=== PATIENT | male | born 1995 | race Caucasian/White ===

== ENCOUNTER 2022-11-21 14:15 | Emergency (ER) | payer SELFPAY ==
--- NOTE | 2022-11-21 14:29 | ED_ITS ---
HPI - General Adult General Chief complaint: Syncope <PHILLIP Diaz - Last Filed: 11/21/22 14:34> Stated complaint: Syncope <PHILLIP Diaz - Last Filed: 11/21/22 14:34> Time Seen by Provider: 11/21/22 15:52 <PHILLIP Diaz - Last Filed: 11/21/22 14:34> Source: patient <Dagmar Seaman MD - Last Filed: 11/21/22 16:29> Mode of arrival: ambulatory <Dagmar Seaman MD - Last Filed: 11/21/22 16:29> History of Present Illness HPI narrative: 26-year-old male without significant past medical history states that he had a 1st episode of passing out? 2 years ago, it has stopped for while and then states that since September he has had several episodes that happen at different times of the day, different activities, he is not able to figure out a pattern. But states that the prodrome is always that he feels pressure at the right parietal area with some noise and he knows it is going to happen. Last episode was yesterday, patient was urinating felt the symptoms quickly left the bathroom and then was found on the floor. A couple of the episodes have been witnessed and is reported as ?seizure like activity?. He denies any recent fevers, chills, GI or symptoms and denies any new cough, sore throat, ear pain and denies any hearing changes or visual changes. <Dagmar Seaman MD - Last Filed: 11/21/22 16:29> Related Data Allergies/adverse reactions: Allergies Allergy/AdvReac Type Severity Reaction Status Date / Time No Known Allergies Allergy Verified 11/21/22 14:30 <PHILLIP Diaz - Last Filed: 11/21/22 14:34> Review of Systems Review of Systems: Pertinent positives and negatives as stated in HPI <Dagmar Seaman MD - Last Filed: 11/21/22 16:29> PMFSH Past Medical History Source: nursing notes reviewed <Dagmar Seaman MD - Last Filed: 11/21/22 16:29> Social History Social History: Social History Alcohol intake: unknown Smoked in Last 30 Days: No Use of substances other than those prescribed or required for medical reasons: Unknown Advance Directives: No Advance Directives Information Provided: No <PHILLIP Diaz Last Filed: 11/21/22 14:34> Physical Exam ED Vital Signs: Vital Signs - 24 hr 11/21/22 14:30 11/21/22 15:45 Temperature 98.1 F Pulse Rate 53 Respiratory Rate 18 16 Blood Pressure 127/69 Pulse Oximetry 98 Oxygen Delivery Method Room Air BMI result Body Mass Index 33.8 <PHILLIP Diaz Last Filed: 11/21/22 14:34> Vital Signs - 24 hr 11/21/22 14:30 11/21/22 15:45 Temperature 98.1 F Pulse Rate 53 Respiratory Rate 18 16 Blood Pressure 127/69 Pulse Oximetry 98 Oxygen Delivery Method Room Air BMI result Body Mass Index 33.8 VITAL SIGNS: Reviewed. GENERAL: Well developed, well nourished, in no acute distress. HEAD: Normocephalic/atraumatic EYES: PERRLA, EOMI EARS: Ext canals without abnormality NOSE: Nares patent bilateral OROPHARYNX: no oral lesions noted, posterior pharynx clear NECK: Supple, no adenopathy LUNGS: Normal breath sounds. No adventitious sounds or accessory muscle use. SpO2<98> CARDIOVASCULAR: Regular rate and rhythm without noted murmurs ABDOMEN: Soft, non-tender, non-distended with bowel sounds. MUSCULOSKELETAL: No tenderness, deformities, or effusions noted on gross inspection. EXTREMITIES: No cyanosis, clubbing or edema. SKIN: Inspection of the skin reveals no rashes NEUROLOGIC: Alert and oriented x 4. Strength and sensation to light touch were grossly intact x 4. <Dagmar Seaman MD - Last Filed: 11/21/22 16:29> Course Course Course Narrative: RME performed by Romina Mccracken PA-C. Patient is a 26 year old female presenting to the emergency department with episodes of intermittent syncope. Patient states that he has had a few episodes of passing out. Labs and EKG ordered. Patient placed back in the waiting room pending room availability and results. <PHILLIP Diaz - Last Filed: 11/21/22 14:34> Medical Decision Making Differential Diagnosis 26-year-old male with history and clinical presentation after review of lab work mildly suggestive of partial seizures although there are no injuries noted to the face/ears/elbows or hands and patient denies any midline vertebral tenderness or hip discomfort. Will obtain orthostatics. There is no evidence infection, anemia, electrolyte abnormalities to otherwise explain patient's condition. 1627: I just informed by nursing that patient eloped. <Dagmar Seaman MD - Last Filed: 11/21/22 16:29> Lab Data Please see the discussion above <Dagmar Seaman MD - Last Filed: 11/21/22 16:29> Result Diagrams: 11/21/22 15:05 11/21/22 15:05 <PHILLIP Diaz - Last Filed: 11/21/22 14:34> Labs: Lab Results 11/21/22 11/21/22 Range/Units 15:05 15:05 WBC 10.9 H (4.8-10.8) X10*3/uL RBC 5.25 (4.60-5.80) X10*6/uL Hgb 15.9 (14.0-18.0) g/dl Hct 46.1 (42.0-52.0) % MCV 87.8 (80.0-98.0) fL MCH 30.3 (27.0-33.0) pg MCHC 34.5 (31.0-36.0) g/dl RDW 12.1 (11.0-16.0) % Plt Count 269 (160-400) X10*3/uL MPV 10.9 (9.4-12.4) fL Immature Gran % (Auto) 0.2 (0.0-0.4) % Neut % (Auto) 63.5 (45-73) % Lymph % (Auto) 28.9 (20-40) % [place] % (Auto) 5.9 (2-11) % Eos % (Auto) 1.2 (0-4) % Baso % (Auto) 0.3 (0-2) % Lymph # (Auto) 3.1 (1.2-4.9) X10*3/uL [place] # (Auto) 0.6 (0.1-1.2) X10*3/uL Eos # (Auto) 0.1 (0.0-0.4) X10*3/uL Baso # (Auto) 0.0 (0.0-0.2) X10*3/uL Abs Immat Gran (auto) 0.02 (0.00-0.03) X10*3/uL Absolute Neuts (auto) 6.9 (2.0-8.3) x10*3/uL Absolute Nucleated RBC 0.000 (0.0-0.012) X10*3/uL Nucleated RBC % (auto) 0.0 (0.0-0.2) /100WBC Sodium 140 (135-145) mmol/L Potassium 3.9 (3.3-5.1) mmol/L Chloride 104 (96-108) mmol/L Carbon Dioxide 25 (22-29) mmol/L Anion Gap 15 (12-20) BUN 17 H (9-16) mg/dL Creatinine 1.12 (0.5-1.4) mg/dL Estim Creat Clear Calc 112.8 Estimated GFR > 60 Random Glucose 97 (60-115) mg/dL Calcium 10.1 (8.4-10.2) mg/dL Magnesium 1.9 (1.6-2.6) mg/dL Total Bilirubin 0.4 (0.0-1.0) mg/dL AST 24 (5-37) U/L ALT 28 (0-40) U/L Alkaline Phosphatase 99 (39-117) U/L Total Protein 7.7 (6.5-8.0) g/dL Albumin 4.5 (3.5-5.0) g/dL <PHILLIP Diaz - Last Filed: 11/21/22 14:34> Lab Results 11/21/22 11/21/22 Range/Units 15:05 15:05 WBC 10.9 H (4.8-10.8) X10*3/uL RBC 5.25 (4.60-5.80) X10*6/uL Hgb 15.9 (14.0-18.0) g/dl Hct 46.1 (42.0-52.0) % MCV 87.8 (80.0-98.0) fL MCH 30.3 (27.0-33.0) pg MCHC 34.5 (31.0-36.0) g/dl RDW 12.1 (11.0-16.0) % Plt Count 269 (160-400) X10*3/uL MPV 10.9 (9.4-12.4) fL Immature Gran % (Auto) 0.2 (0.0-0.4) % Neut % (Auto) 63.5 (45-73) % Lymph % (Auto) 28.9 (20-40) % [place] % (Auto) 5.9 (2-11) % Eos % (Auto) 1.2 (0-4) % Baso % (Auto) 0.3 (0-2) % Lymph # (Auto) 3.1 (1.2-4.9) X10*3/uL [place] # (Auto) 0.6 (0.1-1.2) X10*3/uL Eos # (Auto) 0.1 (0.0-0.4) X10*3/uL Baso # (Auto) 0.0 (0.0-0.2) X10*3/uL Abs Immat Gran (auto) 0.02 (0.00-0.03) X10*3/uL Absolute Neuts (auto) 6.9 (2.0-8.3) x10*3/uL Absolute Nucleated RBC 0.000 (0.0-0.012) X10*3/uL Nucleated RBC % (auto) 0.0 (0.0-0.2) /100WBC Sodium 140 (135-145) mmol/L Potassium 3.9 (3.3-5.1) mmol/L Chloride 104 (96-108) mmol/L Carbon Dioxide 25 (22-29) mmol/L Anion Gap 15 (12-20) BUN 17 H (9-16) mg/dL Creatinine 1.12 (0.5-1.4) mg/dL Estim Creat Clear Calc 112.8 Estimated GFR > 60 Random Glucose 97 (60-115) mg/dL Calcium 10.1 (8.4-10.2) mg/dL Magnesium 1.9 (1.6-2.6) mg/dL Total Bilirubin 0.4 (0.0-1.0) mg/dL AST 24 (5-37) U/L ALT 28 (0-40) U/L Alkaline Phosphatase 99 (39-117) U/L Total Protein 7.7 (6.5-8.0) g/dL Albumin 4.5 (3.5-5.0) g/dL <Dagmar Seaman MD - Last Filed: 11/21/22 16:29> Independent Interpretation I performed an independent interpretation of an: EKG <Dagmar Seaman MD - Last Filed: 11/21/22 16:29> Interpretation: Sinus bradycardia, HR -53, no STEMI, MT/QRS/QTC are within normal limits. Findings in lead 1 are consistent with LVH <Dagmar Seaman MD - Last Filed: 11/21/22 16:29> Discharge Plan Discharge Clinical Impression: Seizure <PHILLIP Diaz - Last Filed: 11/21/22 14:34> Patient Disposition: Elopement <PHILLIP Diaz - Last Filed: 11/21/22 14:34>
[2022-11-21 14:30] VITALS: BP 127/69; PULSE 53; RESP 18; TEMP 36.7; O2SAT 98; BMI 33.8
--- NOTE | 2022-11-21 14:34 | ECG_ITS ---
Test Reason : SYNCOPE Blood Pressure : / mmHG Vent. Rate : 053 BPM Atrial Rate : 053 BPM P-R Int : 150 ms QRS Dur : 098 ms QT Int : 436 ms P-R-T Axes : 033 -07 -13 degrees QTc Int : 409 ms Sinus bradycardia Minimal voltage criteria for LVH, may be normal variant ( R in aVL ) Borderline ECG No previous ECGs available Referred By: Romina Mccracken Electronically Signed By:IVAN CHOW
[2022-11-21 15:16] LABS: MANUAL DIFF FLAG NO
[2022-11-21 15:18] LABS: Basophils Percent Auto 0.3 % (0-2); Eosinophils Absolute Auto 0.1 X10*3/uL (0.0-0.4); Eosinophils Percent Auto 1.2 % (0-4); Hematocrit 46.1 % (42.0-52.0); Hemoglobin 15.9 g/dl (14.0-18.0); Imm Gran Abs Auto 0.02 X10*3/uL (0.00-0.03); Imm Gran Pct Auto 0.2 % (0.0-0.4); Lymphocytes Absolute Auto 3.1 X10*3/uL (1.2-4.9); Lymphocytes Percent Auto 28.9 % (20-40); Mean Corpuscular HGB Conc 34.5 g/dl (31.0-36.0); Mean Corpuscular Hemoglobin 30.3 pg (27.0-33.0); Mean Corpuscular Volume 87.8 fL (80.0-98.0); Mean Platelet Volume 10.9 fL (9.4-12.4); Monocytes Absolute Auto 0.6 X10*3/uL (0.1-1.2); Monocytes Percent Auto 5.9 % (2-11); Neutrophils Absolute Auto 6.9 x10*3/uL (2.0-8.3); Neutrophils Percent Auto 63.5 % (45-73); Platelet Count 269 X10*3/uL (160-400); Red Blood Count 5.25 X10*6/uL (4.60-5.80); Red Cell Distribution Width 12.1 % (11.0-16.0); White Blood Count 10.9 X10*3/uL (4.8-10.8)
[2022-11-21 15:43] LABS: Alanine Aminotransferase 28 U/L (0-40); Albumin Level 4.5 g/dL (3.5-5.0); Alkaline Phosphatase 99 U/L (39-117); Anion Gap 15 (12-20); Aspartate Amino Transferase 24 U/L (5-37); Bilirubin Total 0.4 mg/dL (0.0-1.0); Blood Urea Nitrogen 17 mg/dL (9-16); Calcium 10.1 mg/dL (8.4-10.2); Carbon Dioxide 25 mmol/L (22-29); Chloride 104 mmol/L (96-108); Creatinine Clr Calc Pharmacy 112.8; Estimated Glomerular Filt Rate > 60; Glucose Random 97 mg/dL (60-115); Magnesium 1.9 mg/dL (1.6-2.6); Potassium 3.9 mmol/L (3.3-5.1); Sodium 140 mmol/L (135-145); Total Protein 7.7 g/dL (6.5-8.0)
[2022-11-21 15:45] VITALS: RESP 16
--- NOTE | 2022-11-21 16:26 | PC.NURSE ---
went to bedside to do orthostatic vs. pt has eloped to wr at this time. witnessed by staff to exit to wr.
== END 2022-11-21 16:36 | disposition left against medical advice (07) ==
PROVIDERS: Physician Assistant Medical; Emergency Provider Student in an Organized Health Care Education/Training Program
DX: R56.9 Unspecified convulsions (principal); R00.1 Bradycardia, unspecified
CPT/HCPCS: 36415; 80053; 83735; 85025; 93005; 99283; 99284